=== PATIENT | female | born 1965 | race Caucasian/White ===

== ENCOUNTER 2019-03-23 10:50 | Outpatient (CLI) | payer BC ==
--- NOTE | 2019-03-23 11:39 | RAD ---
THREE VIEWS CERVICAL SPINE: HISTORY: Cervical fusion. Cervical disk degeneration. Bilateral arm pain, x 4 months. FINDINGS: There is no prevertebral soft tissue swelling. Predental space is normal. Limited evaluation of the odontoid process on the open mouth projection. Lateral masses of C1 and C2 articulate appropriately . On the AP projection, no malalignment. There is mild facet hypertrophy. There is an anterior fusion plate with transvertebral screw at C5, C6, and C7. No perihardware lucen cy. Disk prosthesis at C5-C6 and C6-C7. There is straightening of normal cervical lordosis. There is grade I anterolisthesis of C3 upon C4. There is also grade I anterolisthesis of C4 upon C5. Prominent anterior osteophyte formation at C3- C4 and C4-C5. There is no prevertebral soft tissue swelling. IMPRESSION: 1. Uncomplicated cervical fusion hardware. 2. Grade I anterolisthesis of C3 upon C4 and C4 upon C5. Prominent osteophyte formation at C3-C4 an d C4-C5. POS: [facility]
== END 2019-03-23 10:51 | disposition home or self-care (01) ==
LOC: TBSIIMAG 10:50
PROVIDERS: ATTEND Neurological Surgery
DX: M50.30 Other cervical disc degeneration, unspecified cervical region (principal); M43.12 Spondylolisthesis, cervical region; Z98.1 Arthrodesis status
CPT/HCPCS: 72040